=== PATIENT | female | born 2000 | race African-American/Black ===

== ENCOUNTER 2021-10-28 02:53 | Emergency (ER) | payer BC, MEDICAID ==
[2021-10-28 15:36] LABS: SARS-CoV-2 PCR by NAA DETECTED (NotDetected)
== END 2021-10-28 04:22 | disposition home or self-care (01) ==
LOC: CSHERS 02:53
DX: U07.1 COVID-19 (principal); J45.909 Unspecified asthma, uncomplicated
CPT/HCPCS: 99284; U0003; U0005

== ENCOUNTER 2022-02-07 17:12 | Day surgery (SDC) | payer MEDICAID, OTHER ==
[2022-02-07 19:10] VITALS: BMI 32.1
[2022-02-07] MEDS ORDERED: Betamet Acet/Betamet Na Ph 30 MG/5 ML VIAL ONE (20:03)
[2022-02-07] MEDS ORDERED: hydrALAZINE 20 MG/ML VIAL SLOW IVP PRN (20:03)
[2022-02-07] MEDS ORDERED: Betamet Acet/Betamet Na Ph 30 MG/5 ML VIAL IM SCH (20:15)
[2022-02-07 20:20] LABS: Bilirubin Neg (Negative); Blood, Urine Negative (Negative); Clarity Clear (Clear); Glucose, Urine (Dipstick) Normal (Negative); Ketone, Urine Negative (Negative); Leukocyte Negative (Negative); Nitrite Negative (Negative); Protein, Urine (Dipstick) Negative (Neg-Trace); Urobilinogen Normal mg/dL (Less than 2)
[2022-02-07 20:27] LABS: Urine Culture Reflex No No
[2022-02-07 20:30] LABS: Bacteria/HPF Rare-Few HPF (None Seen); RBC/HPF None Seen HPF (0-3); Squamous Epithelial 0-3 HPF (0-3); WBC/HPF 0-3 HPF (0-3)
== END 2022-02-07 20:15 | disposition home or self-care (01) ==
LOC: CSHLD/OP 17:12
PROVIDERS: ATTEND Obstetrics & Gynecology
DX: O36.5930 Maternal care for other known or suspected poor fetal growth, third trimester, not applicable or unspecified (principal); O99.891 Other specified diseases and conditions complicating pregnancy; R10.2 Pelvic and perineal pain; Z3A.33 33 weeks gestation of pregnancy
CPT/HCPCS: 81001; 87480; 87510; 87660; 96372; 99284; J0702

== ENCOUNTER 2022-03-05 14:13 | Inpatient (IN) | payer BC, OTHER ==
[2022-03-05] MEDS ORDERED: Promethazine HCl 25 MG/ML VIAL IM PRN ×3 (15:20→21:46)
[2022-03-05] MEDS ORDERED: hydrALAZINE 20 MG/ML VIAL SLOW IVP PRN ×2 (15:20→21:46)
[2022-03-05] MEDS ORDERED: Ondansetron PF 4 MG/2 ML Vial IVP PRN ×3 (15:20→21:46)
[2022-03-05] MEDS ORDERED: Famotidine/PF 20 mg/2ml Vial SLOW IVP PRN (15:20)
[2022-03-05] MEDS ORDERED: ceFAZolin 2 GM/Dextrose 50 ML 2 GM in Premix Bag 1 BAG IVPB SCH (15:20)
[2022-03-05] MEDS ORDERED: Bicitra 30 ML UDCUP PO PRN (15:20)
[2022-03-05 15:46] VITALS: BMI 32.9
[2022-03-05] MEDS: Lactated Ringer's 1,000 ML IV SCH ×3 (16:13→23:59)
[2022-03-05 16:33] LABS: Hemoglobin 11.1 g/dL (12.0-15.5); Mean Corpuscular HGB CONC 33.8 g/dL (32.0-36.0); Mean Corpuscular Hemoglobin 27.2 pg (27.0-33.0); Mean Corpuscular Volume 80.4 fl (81.6-98.3); Mean Platelet Volume 11.8 fl (7.4-10.4); Platelet Count 325 10x3/uL (150-450); RBC Distribution Width 14.3 % (11.5-14.5); Red Blood Cell (RBC) Count 4.08 10x6/uL (3.90-5.03); White Blood Cell (WBC) Count 7.4 10x3/uL (3.5-10.5)
[2022-03-05] MEDS ORDERED: Oxytocin 10 UNITS/ML VIAL ONE (16:56)
[2022-03-05] MEDS ORDERED: Morphine PF 10 MG/10 ML VIAL ONE (16:56)
[2022-03-05] MEDS ORDERED: Phenylephrine 40 MG/NS 250 ML 250 ML ONE (16:56)
[2022-03-05 17:05] LABS: Syphilis Antibody Nonreactive (Nonreactive)
[2022-03-05 17:05] LABS: SARS-CoV-2 NAA Rapid Test DETECTED (NotDetected)
[2022-03-05 17:17] LABS: HIV (1/2) Antibody/Antigen Non-Reactive (NonReactive); HIV 1/2 INDEX 0.06 S/CO (<1.00); Hep B Surf Ag Non-Reactive S/CO (NonReactive)
[2022-03-05 17:38] LABS: HBSAg Index 0.15 S/CO (0-0.99)
[2022-03-05] MEDS ORDERED: Dexamethasone 4 mg/ml Vial ONE (17:52)
[2022-03-05] MEDS ORDERED: Ondansetron PF 4 MG/2 ML Vial ONE (17:52)
[2022-03-05] MEDS ORDERED: Meperidine HCl/PF 25 MG/ML VIAL SLOW IVP PRN (18:51)
[2022-03-05] MEDS ORDERED: diphenhydrAMINE 50 MG/ML VIAL IVP PRN (18:51)
[2022-03-05] MEDS ORDERED: Ketorolac Tromethamine 30 MG/ML VIAL IVP PRN (18:51)
[2022-03-05] MEDS ORDERED: Naloxone HCl 0.4 mg/ml Vial IV PRN (18:51)
[2022-03-05] MEDS ORDERED: Fentanyl 100 MCG/2 ML VIAL SLOW IVP PRN (18:51)
[2022-03-05] MEDS ORDERED: Moisturizing Cream (Eucerin) 113 GM JAR TOP PRN (18:51)
[2022-03-05] MEDS ORDERED: Promethazine HCl 25 MG SUPP PR PRN (18:51)
[2022-03-05] MEDS ORDERED: Ondansetron HCl/PF 4 MG/2 ML Vial IVP PRN (18:51)
[2022-03-05] MEDS ORDERED: Naloxone HCl 0.4 mg/ml Vial IVP PRN ×2 (18:51)
[2022-03-05] MEDS ORDERED: Ketorolac Tromethamine 30 MG/ML VIAL IVP SCH (19:00)
[2022-03-05] MEDS ORDERED: Communication Order-Pharmacy FS SCH (19:00)
[2022-03-05] MEDS ORDERED: NS w/ Oxytocin 30 units 500 ML ONE (19:47)
[2022-03-05] MEDS ORDERED: Bisacodyl 10 MG SUPP PR PRN (21:46)
[2022-03-05] MEDS ORDERED: Lanolin Ointment 7 GM TUBE TOP PRN (21:46)
[2022-03-05] MEDS ORDERED: Acetaminophen 325 MG TAB PO PRN (21:46)
[2022-03-05] MEDS ORDERED: Simethicone Chewable 80 MG TAB PO PRN (21:46)
[2022-03-05] MEDS ORDERED: Boostrix 0.5 ML (Tdap) VIAL IM ONE (21:46)
[2022-03-05] MEDS ORDERED: NS w/ Oxytocin 30 units 500 ML IV SCH (22:00)
[2022-03-05] MEDS ORDERED: Ferrous Sulfate 325 MG TAB PO SCH (22:15)
[2022-03-05] MEDS ORDERED: Docusate 100 MG CAP PO SCH (22:15)
[2022-03-06] MEDS: Enoxaparin Sodium 30 MG/0.3 ML SYRINGE SC SCH (04:11)
[2022-03-06 04:25] LABS: Hemoglobin 11.1 g/dL (12.0-15.5); Mean Corpuscular HGB CONC 33.3 g/dL (32.0-36.0); Mean Corpuscular Hemoglobin 27.1 pg (27.0-33.0); Mean Corpuscular Volume 81.4 fl (81.6-98.3); Mean Platelet Volume 12.2 fl (7.4-10.4); Platelet Count 314 10x3/uL (150-450); RBC Distribution Width 14.1 % (11.5-14.5); Red Blood Cell (RBC) Count 4.09 10x6/uL (3.90-5.03); White Blood Cell (WBC) Count 12.8 10x3/uL (3.5-10.5)
[2022-03-06] MEDS: Lactated Ringer's 1,000 ML IV SCH ×2 (06:04→17:48)
[2022-03-06] MEDS ORDERED: HYDROcodone/Acetaminophen 5/325 mg Tablet PO PRN (07:00)
[2022-03-06] MEDS: diphenhydrAMINE 25 MG CAP PO PRN ×3 (08:10→20:16)
[2022-03-06] MEDS: HYDROcodone/Acetaminophen 5/325 mg Tablet PO PRN ×3 (08:10→20:16)
[2022-03-06] MEDS: Ferrous Sulfate 325 MG TAB PO SCH ×2 (08:11→21:40)
[2022-03-06] MEDS: Prenatal Vitamin 1 TAB PO SCH (08:11)
[2022-03-06] MEDS: Docusate 100 MG CAP PO SCH ×2 (08:11→22:03)
[2022-03-06] MEDS: Ibuprofen 800 MG TAB PO SCH (22:03)
[2022-03-07] MEDS: diphenhydrAMINE 25 MG CAP PO PRN (05:46)
[2022-03-07] MEDS: Enoxaparin Sodium 30 MG/0.3 ML SYRINGE SC SCH (05:47)
[2022-03-07] MEDS: Ibuprofen 800 MG TAB PO SCH ×2 (05:47→13:42)
[2022-03-07] MEDS: Lactated Ringer's 1,000 ML IV SCH ×2 (07:01→08:17)
[2022-03-07] MEDS: Ferrous Sulfate 325 MG TAB PO SCH (07:02)
[2022-03-07] MEDS: Docusate 100 MG CAP PO SCH (08:04)
[2022-03-07] MEDS: Prenatal Vitamin 1 TAB PO SCH (08:04)
[2022-03-07 11:23] VITALS: BP 128/68; TEMP 98.1
== END 2022-03-07 14:40 | disposition home or self-care (01) | DRG 786 ==
LOC: CSHLD 14:59 → CSHANTE 21:05
PROVIDERS: ADMIT Obstetrics & Gynecology; ATTEND Obstetrics & Gynecology
PROC: 10D00Z1 Extraction of Products of Conception, Low, Open Approach (ICD-10-PCS; principal; 2022-03-05)
PROC: 8E0ZXY6 Isolation (ICD-10-PCS; 2022-03-05)
DX: O36.5930 Maternal care for other known or suspected poor fetal growth, third trimester, not applicable or unspecified (principal); U07.1 COVID-19; O98.52 Other viral diseases complicating childbirth; Z3A.37 37 weeks gestation of pregnancy; Z37.0 Single live birth; O43.893 Other placental disorders, third trimester; O77.0 Labor and delivery complicated by meconium in amniotic fluid; O69.81X0 Labor and delivery complicated by cord around neck, without compression, not applicable or unspecified; O33.9 Maternal care for disproportion, unspecified
CPT/HCPCS: 36415; 51702; 85027; 86780; 86850; 86900; 86901; 87340; 87389; 88307; J0690; J1100; J1200; J1650; J1885; J2274; J2405; J2590; J7120; S0028; U0002

== ENCOUNTER 2022-06-03 15:24 | Emergency (ER) | payer BC, OTHER | END 2022-06-03 16:12 | disposition home or self-care (01) | LOC: CSHERS 15:24 | DX: L60.0 Ingrowing nail (principal) | CPT/HCPCS: 99283 ==

== ENCOUNTER 2025-09-12 19:00 | Inpatient (IN) | payer BC, OTHER ==
[2025-09-12] MEDS ORDERED: Diphenoxylate HCl/Atropine Tablet PO PRN ×2 (19:12)
[2025-09-12] MEDS ORDERED: Methylergonovine 0.2 MG/ML VIAL IM PRN (19:12)
[2025-09-12] MEDS ORDERED: Acetaminophen 500 MG TAB PO PRN (19:12)
[2025-09-12] MEDS ORDERED: hydrALAZINE 20 MG/ML VIAL SLOW IVP PRN (19:12)
[2025-09-12] MEDS ORDERED: Ondansetron PF 4 MG/2 ML Vial IVP PRN (19:12)
[2025-09-12] MEDS ORDERED: Tranexamic Acid 1,000 MG/10 ML VIAL IVP PRN (19:12)
[2025-09-12] MEDS ORDERED: Lidocaine 1% (PF) 30 ML VIAL SC PRN (19:12)
[2025-09-12] MEDS ORDERED: Carboprost 250 MCG/ML AMP IM PRN (19:12)
[2025-09-12] MEDS ORDERED: Penicillin G 2.5 MILL.units 2.5 MILL.UNITS in Premix 1 BAG IVPB SCH (19:15)
[2025-09-12] MEDS ORDERED: Oxytocin 30 units/NS 500 ML 500 ML IV SCH (21:00)
[2025-09-12 21:03] VITALS: BMI 36.2
[2025-09-12 21:58] LABS: Hematocrit 34.8 % (34.9-44.5); Hemoglobin 11.3 g/dL (12.0-15.5); Mean Corpuscular Hemoglobin 24.3 pg (27.0-33.0); Mean Corpuscular Volume 74.8 fL (81.6-98.3); Platelet Count 363 10x3/uL (150-450); Red Blood Cell (RBC) Count 4.65 10x6/uL (3.90-5.03); White Blood Cell (WBC) Count 11.85 10x3/uL (3.5-10.5)
[2025-09-12 22:26] LABS: Syphilis Antibody Index 0.11 S/CO (<1.00 Non-Reactive)
[2025-09-12 22:28] LABS: Hep B Surf Ag - L&D Non-Reactive S/CO (NonReactive)
[2025-09-12] MEDS: Oxytocin 30 units/NS 500 ML 500 ML IV SCH (23:16)
[2025-09-13] MEDS ORDERED: Calcium Gluc 4.6 MEQ/10 ML (100 MG/ML) SLOW IVP PRN (07:49)
[2025-09-13] MEDS ORDERED: hydrALAZINE 20 MG/ML VIAL SLOW IVP PRN ×3 (07:49→21:32)
[2025-09-13] MEDS ORDERED: Famotidine/PF 20 mg/2ml Vial SLOW IVP PRN (08:47)
[2025-09-13] MEDS ORDERED: Bicitra 30 ML UDCUP PO PRN (08:47)
[2025-09-13] MEDS ORDERED: Azithromycin 500 MG in Sodium Chloride 0.9% 250 ML 250 ML IVPB SCH (09:00)
[2025-09-13] MEDS ORDERED: Meperidine HCl/PF 25 MG (1 mL) VIAL SLOW IVP PRN ×2 (09:08→15:02)
[2025-09-13] MEDS ORDERED: Ondansetron PF 4 MG/2 ML Vial IVP PRN ×3 (09:08→15:02)
[2025-09-13] MEDS ORDERED: diphenhydrAMINE 50 MG/ML VIAL IVP PRN ×2 (09:08→15:01)
[2025-09-13] MEDS ORDERED: Communication Order-Pharmacy FS SCH ×3 (09:15→15:15)
[2025-09-13 09:20] LABS: #Basophils 0.03 10x3/uL (0.0-0.2); #Eosinophils 0.10 10x3/uL (0.0-0.5); #Monocytes 0.79 10x3/uL (0.0-1.1); #Neutrophils 7.58 10x3/uL (1.5-8.4); %Basophils 0.3 % (0.0-2.0); %Eosinophils 0.9 % (0.0-6.0); %Lymphocytes 19.0 % (18.0-47.0); %Monocytes 7.5 % (0.0-10.0); %Neutrophils 71.8 % (40.0-75.0); Hematocrit 32.7 % (34.9-44.5); Hemoglobin 10.8 g/dL (12.0-15.5); Mean Corpuscular Hemoglobin 24.9 pg (27.0-33.0); Mean Corpuscular Volume 75.5 fL (81.6-98.3); Platelet Count 327 10x3/uL (150-450); Red Blood Cell (RBC) Count 4.33 10x6/uL (3.90-5.03); White Blood Cell (WBC) Count 10.56 10x3/uL (3.5-10.5)
[2025-09-13 09:27] LABS: AST (SGOT) 17 U/L (11-34); Albumin 2.5 g/dL (3.1-4.5); Alkaline Phosphatase 138 U/L (40-110); Anion Gap 12 mmol/L (10-20); BUN (Urea Nitrogen) Less than 4 mg/dL (7.0-18.7); Bilirubin, Total 0.6 mg/dL (0.3-1.2); Calc. Creatinine Clearance 195 mL/min (70-130); Calcium 8.6 mg/dL (7.8-10.44); Carbon Dioxide 20 mmol/L (22-29); Chloride 110 mmol/L (98-107); Globulin 3.9 g/dL (2.4-3.5); Glucose 85 mg/dL (70-105); Potassium 3.9 mmol/L (3.5-5.1); Sodium 138 mmol/L (136-145)
[2025-09-13 09:38] LABS: ALT (SGPT) Less than 7 U/L (Less than 34)
[2025-09-13] MEDS ORDERED: Bupivacaine/Epinephrine 0.25% 30 ML VIAL ONE (13:00)
[2025-09-13] MEDS: Ondansetron PF 4 MG/2 ML Vial IVP PRN (14:43)
[2025-09-13] MEDS ORDERED: Acetaminophen 325 MG TAB PO PRN (15:01)
[2025-09-13] MEDS ORDERED: Lidocaine 2% MPF 10 ML AMP (For Epidural Use) ONE (15:45)
[2025-09-13] MEDS ORDERED: Ketorolac Tromethamine 30 MG (1 mL) VIAL IVP SCH (16:00)
[2025-09-13] MEDS ORDERED: Ketorolac Tromethamine 30 MG (1 mL) VIAL IVP PRN (16:30)
[2025-09-13] MEDS: CEFAZOLIN 2 GM VIAL ONE (17:56)
[2025-09-13] MEDS ORDERED: Lanolin Ointment 7 GM TUBE TOP PRN (21:32)
[2025-09-13] MEDS ORDERED: Simethicone Chewable 80 MG TAB PO PRN (21:32)
[2025-09-13] MEDS: Ketorolac Tromethamine 30 MG (1 mL) VIAL IVP PRN (22:23)
[2025-09-13] MEDS: diphenhydrAMINE 50 MG/ML VIAL IVP PRN (22:26)
[2025-09-13] MEDS: Azithromycin 500 MG VIAL ONE (23:50)
[2025-09-13] MEDS: Lidocaine 2% MPF 10 ML AMP (For Epidural Use) ONE (23:51)
[2025-09-13] MEDS: PHENYLEPHRINE-NS 100 MCG/ML 10 ML SYRINGE ONE (23:51)
[2025-09-13] MEDS: Ketorolac Tromethamine 30 MG (1 mL) VIAL ONE (23:51)
[2025-09-13] MEDS: Oxytocin 10 UNITS/ML VIAL ONE ×2 (23:51→23:52)
[2025-09-13] MEDS: Phenylephrine 40 MG/NS 250 ML 250 ML ONE (23:51)
[2025-09-13] MEDS: Ketorolac Tromethamine 30 MG (1 mL) VIAL IVP SCH (23:52)
[2025-09-13] MEDS: diphenhydrAMINE 50 MG/ML VIAL ONE (23:52)
[2025-09-13] MEDS: Ferrous Sulfate 325 MG TAB PO SCH (23:53)
[2025-09-14] MEDS ORDERED: HYDROcodone/Acetaminophen 5/325 mg Tablet PO PRN (03:15)
[2025-09-14] MEDS: Ondansetron PF 4 MG/2 ML Vial IVP PRN (03:40)
[2025-09-14 04:37] LABS: Hematocrit 28.3 % (34.9-44.5); Hemoglobin 9.2 g/dL (12.0-15.5); Mean Corpuscular Hemoglobin 24.5 pg (27.0-33.0); Mean Corpuscular Volume 75.5 fL (81.6-98.3); Platelet Count 302 10x3/uL (150-450); Red Blood Cell (RBC) Count 3.75 10x6/uL (3.90-5.03); White Blood Cell (WBC) Count 12.64 10x3/uL (3.5-10.5)
[2025-09-14 04:51] LABS: Protein, Urine Random Quant Less than 10 mg/dL (1-14)
[2025-09-14] MEDS: Ferrous Sulfate 325 MG TAB PO SCH (09:15)
[2025-09-14] MEDS: HYDROcodone/Acetaminophen 5/325 mg Tablet PO PRN (09:15)
[2025-09-14] MEDS: Ibuprofen 800 MG TAB PO SCH (21:41)
[2025-09-14] MEDS: diphenhydrAMINE 25 MG CAP PO PRN (23:30)
[2025-09-15 07:55] VITALS: BP 110/67; TEMP 97.5
== END 2025-09-15 12:40 | disposition home or self-care (01) | DRG 788 ==
LOC: CSHLD 20:32 → CSHPP 09-13 19:55
PROVIDERS: ADMIT Family Medicine; ATTEND Family Medicine
PROC: 10D00Z1 Extraction of Products of Conception, Low, Open Approach (ICD-10-PCS; principal; 2025-09-13)
DX: O48.0 Post-term pregnancy (principal); O36.5930 Maternal care for other known or suspected poor fetal growth, third trimester, not applicable or unspecified; Z3A.40 40 weeks gestation of pregnancy; Z37.0 Single live birth; O34.211 Maternal care for low transverse scar from previous cesarean delivery; O99.344 Other mental disorders complicating childbirth; F32.A Depression, unspecified; D57.3 Sickle-cell trait; O99.02 Anemia complicating childbirth; Z79.899 Other long term (current) drug therapy; Z79.82 Long term (current) use of aspirin; O99.892 Other specified diseases and conditions complicating childbirth
CPT/HCPCS: 36415; 51702; 80053; 82570; 84156; 85025; 85027; 86780; 86850; 86900; 86901; 87340; J1200; J1885; J2274; J2405; J2590; J3010